=== PATIENT | male | born 1960 | race Two or more races ===

== ENCOUNTER 2021-03-18 08:41 | Emergency (ER) | payer SELFPAY ==
[~2021-03-18] VITALS: Ht 165.1 cm; Wt 113.6 kg
[2021-03-18] MEDS ORDERED: METF-960 PO (08:46)
[2021-03-18] MEDS ORDERED: ACETAMINOPHEN 325 MG TABLET PO ONE (09:30)
[2021-03-18] MEDS ORDERED: IBUPROFEN 400 MG TABLET PO ONE (09:30)
[2021-03-18] MEDS ORDERED: LIDOCAINE 5% TRANSDERMAL PATCH TD ONE (09:30)
[2021-03-18 10:22] VITALS: BP 164/79
== END 2021-03-18 11:15 | disposition home or self-care (01) ==
LOC: EMS 08:41
DX: M54.6 Pain in thoracic spine (principal); R07.81 Pleurodynia; E11.9 Type 2 diabetes mellitus without complications; Z79.84 Long term (current) use of oral hypoglycemic drugs; V19.9XXA Pedal cyclist (driver) (passenger) injured in unspecified traffic accident, initial encounter; Y93.55 Activity, bike riding; Y92.89 Other specified places as the place of occurrence of the external cause; Y99.8 Other external cause status
CPT/HCPCS: 71250; 72128; 82962; 99285

== ENCOUNTER 2021-05-03 11:37 | Inpatient (IN) | payer MEDICAID ==
[~2021-05-03] VITALS: Ht 165.1 cm; Wt 122.7 kg
[~2021-05-03 11:37] MED LIST: METF-960 PO
[2021-05-03 13:52] LABS: BAND NEUTROPHILS % (MANUAL) 0 % (0-5)
[2021-05-03 14:03] LABS: HEMATOCRIT 42.9 % (41-53); HEMOGLOBIN 14.8 g/dL (13.5-17.5); MEAN CORPUSCULAR HEMOGLOBIN 32.8 pg (26.0-34.0); MEAN CORPUSCULAR HGB CONC 34.5 G/dL (31.0-37.0); MEAN CORPUSCULAR VOLUME 95 fL (80-100); PLATELET COUNT (AUTO) 260 K/uL (150-450); RED BLOOD CELL COUNT(AUTO) 4.52 MIL/uL (4.50-5.90); RED CELL DISTRIBUTION WIDTH 13.1 % (11.5-14.5)
[2021-05-03 14:15] LABS: PROTHROMBIN TIME 10.6 SEC (9.4-11.6)
[2021-05-03 14:22] LABS: ANION GAP 9 mmol/L (8-16); CALCIUM, TOTAL 8.2 mg/dL (8.8-10.5); CARBON DIOXIDE 27 mmol/L (22-29); CHLORIDE 102 mmol/L (98-107); CREATININE 0.62 mg/dL (0.60-1.30); GLOMERULAR FILTR. RATE CALC > 60 mL/min (>60); GLUCOSE,RANDOM 229 mg/dL (70-110); POTASSIUM 3.7 mmol/L (3.5-5.1); SODIUM SERUM 138 mmol/L (136-145); UREA NITROGEN, BLOOD 12 mg/dL (7-18)
[2021-05-03 14:27] LABS: ALANINE AMINOTRANSFERASE 93 U/L (12-78); ALBUMIN 3.3 g/dL (3.4-5.0); ALKALINE PHOSPHATASE 98 U/L (46-116); ASPARTATE AMINOTRANSFERASE 68 U/L (15-37); BILIRUBIN,TOTAL 0.7 mg/dL (0.1-1.0); TOTAL PROTEIN, SERUM 7.1 g/dL (6.4-8.2)
[2021-05-03 14:29] LABS: EOSINOPHILS % (MANUAL) 1 % (1-6); LYMPHOCYTES % (MANUAL) 22 % (22-44); MONOCYTES % (MANUAL) 7 % (2-9); SEGMENTED NEUTROPHILS % 70 % (40-70)
[2021-05-03] MEDS ORDERED: ASPIRIN 325 MG DR TABLET PO ONE (14:45)
[2021-05-03] MEDS ORDERED: ACETAMINOPHEN 325 MG TABLET PO PRN (15:15)
[2021-05-03] MEDS ORDERED: HYDROCODONE/ACETAMINOPHEN 5-325 MG TABLET PO PRN (15:15)
[2021-05-03] MEDS ORDERED: ASPIRIN 325 MG TABLET PO ONE (15:15)
[2021-05-03] MEDS ORDERED: ZOLPIDEM TARTRATE 5 MG TABLET PO PRN (15:15)
[2021-05-03] MEDS ORDERED: ONDANSETRON HCL 4 MG/2 ML VIAL IVP PRN (15:15)
[2021-05-03] MEDS ORDERED: MORPHINE SULFATE 2 MG/ML SYRINGE IVP PRN (15:15)
[2021-05-03] MEDS ORDERED: BISACODYL 10 MG RECTAL RECTAL SUPPOSITORY PR PRN (15:15)
[2021-05-03] MEDS ORDERED: MAGNESIUM HYDROXIDE SUSPENSION 30 ML UDCUP PO PRN (15:15)
[2021-05-03] MEDS ORDERED: ASPIRIN 81 MG CHEWABLE TABLET PO ONE (15:15)
[2021-05-03 15:49] LABS: COVID AG,FIA SOURCE NASOPHARYNGEAL
[2021-05-03 16:56] LABS: AMPHET/METH SCREEN,URINE NEGATIVE (NEGATIVE); BARBITURATE SCREEN, URINE NEGATIVE (NEGATIVE); BENZODIAZEPINES SCREEN,URINE NEGATIVE (NEGATIVE); CANNABINOID SCREEN,URINE POSITIVE (NEGATIVE); COCAINE SCREEN,URINE NEGATIVE (NEGATIVE); METHADONE SCREEN, URINE NEGATIVE (NEGATIVE); OPIATE SCREEN,URINE NEGATIVE (NEGATIVE)
[2021-05-03 16:59] LABS: PHENCYCLIDINE SCREEN,URINE NEGATIVE (NEGATIVE)
[2021-05-03 18:25] VITALS: BP 137/68
[2021-05-03 19:40] VITALS: BP 147/80
[2021-05-03] MEDS: MetFORMIN HCL 500 MG TABLET PO SCH (20:44)
[2021-05-03] MEDS: DOCUSATE SODIUM 100 MG CAPSULE PO SCH (20:44)
[2021-05-03] MEDS: ATORVASTATIN CALCIUM 20 MG TABLET PO SCH (20:45)
[2021-05-03] MEDS ORDERED: ATORVASTATIN CALCIUM 20 MG TABLET PO SCH (21:00)
[2021-05-03] MEDS: HEPARIN SODIUM,PORCINE 5,000 UNITS/ML VIAL SQ SCH (23:35)
[2021-05-03 23:38] VITALS: BP 151/81
[2021-05-04 00:08] LABS: GLUCOMETER DEV NAME(LOC) 6N.1; GLUCOSE,POINT OF CARE 178 MG/DL (70-110)
[2021-05-04 01:12] LABS: CHOL/HDL RATIO 5.2 (4.2-7.3); CHOLESTEROL 191 mg/dL (131-200); HDL CHOLESTEROL 37 mg/dL (40-60); LDL CHOL (CALC.) 128 mg/dL (0-130); THYROID STIMULATING HORMONE 2.07 uIU/mL (0.36-3.74); TRIGLYCERIDES 130 mg/dL (15-150)
[2021-05-04 04:48] VITALS: BP 122/76
[2021-05-04 06:54] LABS: GLUCOMETER DEV NAME(LOC) 6N.1; GLUCOSE,POINT OF CARE 192 MG/DL (70-110)
[2021-05-04 08:00] VITALS: BP 136/82
[2021-05-04] MEDS: ASPIRIN 81 MG CHEWABLE TABLET PO SCH (09:08)
[2021-05-04] MEDS: HEPARIN SODIUM,PORCINE 5,000 UNITS/ML VIAL SQ SCH ×3 (09:09→23:29)
[2021-05-04] MEDS: PANTOPRAZOLE SODIUM 40 MG DR TABLET PO SCH (09:09)
[2021-05-04] MEDS: MetFORMIN HCL 500 MG TABLET PO SCH ×2 (09:09→18:03)
[2021-05-04] MEDS: DOCUSATE SODIUM 100 MG CAPSULE PO SCH ×2 (09:09→20:20)
[2021-05-04] MEDS ORDERED: LORazepam 2 MG/ML VIAL IVP ONE (11:30)
[2021-05-04] MEDS ORDERED: DEXTROSE 50%-WATER 25 GM/50 ML SYRINGE IVP PRN (11:30)
[2021-05-04] MEDS: INSULIN LISPRO 100 UNITS/ML SQ PRN ×2 (12:10→20:28)
[2021-05-04 12:47] LABS: GLUCOMETER DEV NAME(LOC) 6N.1; GLUCOSE,POINT OF CARE 206 MG/DL (70-110)
[2021-05-04 15:03] VITALS: BP 135/77
[2021-05-04 18:10] LABS: GLUCOMETER DEV NAME(LOC) 6S.1; GLUCOSE,POINT OF CARE 139 MG/DL (70-110)
[2021-05-04] MEDS: ATORVASTATIN CALCIUM 20 MG TABLET PO SCH (20:20)
[2021-05-04 20:40] VITALS: BP 142/74
[2021-05-04 21:30] LABS: GLUCOMETER DEV NAME(LOC) 6S.1; GLUCOSE,POINT OF CARE 204 MG/DL (70-110)
[2021-05-05 05:06] VITALS: BP 139/88
[2021-05-05 05:07] VITALS: BP 139/88
[2021-05-05] MEDS: INSULIN LISPRO 100 UNITS/ML SQ PRN ×3 (05:09→20:11)
[2021-05-05 07:42] LABS: GLUCOMETER DEV NAME(LOC) 6N.1; GLUCOSE,POINT OF CARE 166 MG/DL (70-110)
[2021-05-05 08:22] VITALS: BP 134/84
[2021-05-05] MEDS: ASPIRIN 81 MG CHEWABLE TABLET PO SCH (08:34)
[2021-05-05] MEDS: HEPARIN SODIUM,PORCINE 5,000 UNITS/ML VIAL SQ SCH ×3 (08:35→23:05)
[2021-05-05] MEDS: PANTOPRAZOLE SODIUM 40 MG DR TABLET PO SCH (08:35)
[2021-05-05] MEDS: DOCUSATE SODIUM 100 MG CAPSULE PO SCH ×2 (08:35→20:06)
[2021-05-05] MEDS: MetFORMIN HCL 500 MG TABLET PO SCH ×2 (08:35→17:15)
[2021-05-05] MEDS ORDERED: SIMVASTATIN 40 MG TABLET PO SCH (09:00)
[2021-05-05 12:31] LABS: GLUCOMETER DEV NAME(LOC) 6N.1; GLUCOSE,POINT OF CARE 164 MG/DL (70-110)
[2021-05-05] MEDS: SIMVASTATIN 40 MG TABLET PO SCH (14:59)
[2021-05-05 15:03] VITALS: BP 151/79
[2021-05-05 19:35] VITALS: BP 149/85
[2021-05-05 22:10] LABS: GLUCOMETER DEV NAME(LOC) 6N.1; GLUCOSE,POINT OF CARE 130 MG/DL (70-110)
[2021-05-05 22:10] LABS: GLUCOMETER DEV NAME(LOC) 6N.1; GLUCOSE,POINT OF CARE 186 MG/DL (70-110)
[2021-05-06 04:05] VITALS: BP 144/84
[2021-05-06] MEDS: INSULIN LISPRO 100 UNITS/ML SQ PRN ×3 (06:00→20:04)
[2021-05-06 06:01] LABS: GLUCOMETER DEV NAME(LOC) 6S.1; GLUCOSE,POINT OF CARE 170 MG/DL (70-110)
[2021-05-06 08:00] VITALS: BP 136/64
[2021-05-06] MEDS: SIMVASTATIN 40 MG TABLET PO SCH (08:53)
[2021-05-06] MEDS: PANTOPRAZOLE SODIUM 40 MG DR TABLET PO SCH (08:53)
[2021-05-06] MEDS: DOCUSATE SODIUM 100 MG CAPSULE PO SCH ×2 (08:53→20:00)
[2021-05-06] MEDS: MetFORMIN HCL 500 MG TABLET PO SCH ×2 (08:53→17:51)
[2021-05-06] MEDS: ASPIRIN 81 MG CHEWABLE TABLET PO SCH (08:53)
[2021-05-06] MEDS: HEPARIN SODIUM,PORCINE 5,000 UNITS/ML VIAL SQ SCH ×3 (08:53→23:38)
[2021-05-06] MEDS ORDERED: ASPI-1450 PO (13:29)
[2021-05-06] MEDS ORDERED: SIMV-261 PO (13:29)
[2021-05-06 16:10] VITALS: BP 144/81
[2021-05-06 16:24] LABS: GLUCOMETER DEV NAME(LOC) 6S.1; GLUCOSE,POINT OF CARE 185 MG/DL (70-110)
[2021-05-06 19:17] VITALS: BP 134/60
[2021-05-06 19:42] LABS: GLUCOMETER DEV NAME(LOC) 6S.1; GLUCOSE,POINT OF CARE 136 MG/DL (70-110)
[2021-05-06 20:42] LABS: GLUCOMETER DEV NAME(LOC) 6S.1; GLUCOSE,POINT OF CARE 146 MG/DL (70-110)
[2021-05-07 04:50] VITALS: BP 138/82
[2021-05-07 06:02] LABS: GLUCOMETER DEV NAME(LOC) 6S.1; GLUCOSE,POINT OF CARE 138 MG/DL (70-110)
[2021-05-07 07:57] VITALS: BP 143/85
[2021-05-07] MEDS: DOCUSATE SODIUM 100 MG CAPSULE PO SCH (08:30)
[2021-05-07] MEDS: HEPARIN SODIUM,PORCINE 5,000 UNITS/ML VIAL SQ SCH (08:30)
[2021-05-07] MEDS: PANTOPRAZOLE SODIUM 40 MG DR TABLET PO SCH (08:30)
[2021-05-07] MEDS: ASPIRIN 81 MG CHEWABLE TABLET PO SCH (08:31)
[2021-05-07] MEDS: SIMVASTATIN 40 MG TABLET PO SCH (08:31)
[2021-05-07] MEDS: MetFORMIN HCL 500 MG TABLET PO SCH (08:31)
== END 2021-05-07 10:30 | disposition home or self-care (01) | DRG 45 ==
LOC: EMS 11:41 → 6N 15:02
PROVIDERS: ADMIT Internal Medicine; ATTEND Internal Medicine
DX: I63.9 Cerebral infarction, unspecified (principal); E11.65 Type 2 diabetes mellitus with hyperglycemia; E66.01 Morbid (severe) obesity due to excess calories; F10.20 Alcohol dependence, uncomplicated; I10 Essential (primary) hypertension; R55 Syncope and collapse; M25.512 Pain in left shoulder; Z20.822 Contact with and (suspected) exposure to COVID-19; G83.24 Monoplegia of upper limb affecting left nondominant side; S60.222A Contusion of left hand, initial encounter; S40.819A Abrasion of unspecified upper arm, initial encounter; Z79.82 Long term (current) use of aspirin; Z79.899 Other long term (current) drug therapy; V19.9XXA Pedal cyclist (driver) (passenger) injured in unspecified traffic accident, initial encounter; Y92.89 Other specified places as the place of occurrence of the external cause; Y99.8 Other external cause status; Z68.42 Body mass index [BMI] 45.0-49.9, adult; Y93.55 Activity, bike riding
CPT/HCPCS: 70450; 70551; 72125; 80053; 80061; 82962; 83036; 84443; 85007; 85027; 85610; 93306; 93880; 97165; 99291; G0480; J1644

== ENCOUNTER 2021-12-09 08:48 | Emergency (ER) | payer MEDICAID ==
[~2021-12-09] VITALS: Ht 165.1 cm; Wt 77.3 kg
[~2021-12-09 08:48] MED LIST changes: +ASPI-1450 PO; +METF-1211 PO; -METF-960 PO; +SIMV-261 PO
[2021-12-09 09:43] LABS: BASOPHILS % (AUTO) 0.4 % (0.0-2.0); EOSINOPHILS % (AUTO) 5.6 % (1.0-6.0); HEMATOCRIT 41.2 % (41-53); HEMOGLOBIN 14.4 g/dL (13.5-17.5); LYMPHOCYTES # (AUTO) 2.2 K/uL (1.0-4.8); LYMPHOCYTES % (AUTO) 28.4 % (22.0-44.0); MEAN CORPUSCULAR HEMOGLOBIN 30.6 pg (26.0-34.0); MEAN CORPUSCULAR HGB CONC 34.9 G/dL (31.0-37.0); MEAN CORPUSCULAR VOLUME 88 fL (80-100); MONOCYTES # (AUTO) 0.7 K/uL (0.1-1.0); MONOCYTES % (AUTO) 9.7 % (2.0-9.0); NEUTROPHILS # (AUTO) 4.2 K/uL (1.8-7.7); NEUTROPHILS % (AUTO) 55.9 % (40.0-70.0); PLATELET COUNT (AUTO) 272 K/uL (150-450); RED CELL DISTRIBUTION WIDTH 14.1 % (11.5-14.5)
[2021-12-09 09:53] LABS: ANION GAP 8 mmol/L (8-16); CALCIUM, TOTAL 9.2 mg/dL (8.8-10.5); CARBON DIOXIDE 28 mmol/L (22-29); CHLORIDE 102 mmol/L (98-107); CREATININE 0.73 mg/dL (0.60-1.30); GLOMERULAR FILTR. RATE CALC > 60 mL/min (>60); GLUCOSE,RANDOM 129 mg/dL (70-110); POTASSIUM 4.9 mmol/L (3.5-5.1); SODIUM SERUM 138 mmol/L (136-145); UREA NITROGEN, BLOOD 17 mg/dL (7-18)
[2021-12-09 09:59] LABS: ALANINE AMINOTRANSFERASE 35 U/L (12-78); ALBUMIN 3.8 g/dL (3.4-5.0); ALKALINE PHOSPHATASE 100 U/L (46-116); ASPARTATE AMINOTRANSFERASE 26 U/L (15-37); BILIRUBIN,TOTAL 0.4 mg/dL (0.1-1.0)
[2021-12-09 15:36] VITALS: BP 136/75
== END 2021-12-09 15:38 | disposition home or self-care (01) ==
LOC: EMS 08:48
DX: G89.29 Other chronic pain (principal); F32.9 Major depressive disorder, single episode, unspecified; M25.512 Pain in left shoulder; E11.9 Type 2 diabetes mellitus without complications; F17.210 Nicotine dependence, cigarettes, uncomplicated; Z79.84 Long term (current) use of oral hypoglycemic drugs; Z79.82 Long term (current) use of aspirin
CPT/HCPCS: 36415; 73030; 80053; 85025; 99284; G0480